=== PATIENT | male | born 1995 | race Caucasian/White ===

== ENCOUNTER 2019-01-31 10:24 | Emergency (ER) | payer MEDICAID ==
[~2019-01-31] VITALS: Ht 175.3 cm; Wt 77.0 kg
[2019-01-31 10:52] VITALS: BP 130/78
[2019-01-31] MEDS ORDERED: IBUPROFEN 800MG TABLET PO ONE (11:30)
[2019-01-31] MEDS ORDERED: LIDOCAINE HCL/PF 1% 10 MG/ML 5ML VIAL IJ ONE (11:30)
[2019-01-31] MEDS ORDERED: TETANUS, DIPHTHERIA, PERTUSSIS VAC/PF 0.5ML (>7YR OLD) IM ONE (11:30)
== END 2019-01-31 12:48 | disposition home or self-care (01) ==
LOC: ER 10:32
DX: S61.210A Laceration without foreign body of right index finger without damage to nail, initial encounter (principal); W26.8XXA Contact with other sharp object(s), not elsewhere classified, initial encounter; Y93.89 Activity, other specified; Y92.89 Other specified places as the place of occurrence of the external cause; Y99.8 Other external cause status; F12.10 Cannabis abuse, uncomplicated
CPT/HCPCS: 12002; 90471; 90715; 99283; J3490; Z7610

== ENCOUNTER 2019-02-02 12:14 | Emergency (ER) | payer MEDICAID ==
[~2019-02-02] VITALS: Ht 167.6 cm; Wt 103.0 kg
[2019-02-02 12:23] VITALS: BP 123/62
== END 2019-02-02 16:08 | disposition home or self-care (01) ==
LOC: ER 12:14
DX: S61.210D Laceration without foreign body of right index finger without damage to nail, subsequent encounter (principal); F12.10 Cannabis abuse, uncomplicated; X58.XXXD Exposure to other specified factors, subsequent encounter
CPT/HCPCS: 99281

== ENCOUNTER 2019-02-10 11:11 | Emergency (ER) | payer MEDICAID ==
[~2019-02-10] VITALS: Ht 172.7 cm; Wt 100.0 kg
[2019-02-10 12:01] VITALS: BP 123/87
== END 2019-02-10 15:03 | disposition home or self-care (01) ==
LOC: ER 11:11
DX: Z48.02 Encounter for removal of sutures (principal)
CPT/HCPCS: 99281